=== PATIENT | female | born 1995 | race Caucasian/White ===

== ENCOUNTER 2018-01-06 23:19 | Emergency (ER) | payer OTHER ==
[~2018-01-06] VITALS: Ht 160 cm; Wt 81.9 kg
[~2018-01-06 23:19] MED LIST: ABILIFY10 MG PO; ABILIFY15 MG PO; ABILIFY5 MG PO; ADVIL200 MG PO; BUSPAR5 MG PO; ESCITALOPRAM OX20 MG PO; FLONASE16 G1 BOTH NARES; FLUOXETINE HCL20 MG PO; FOCALIN XR10 MG PO; IBUPROFEN800 MG PO; INDERAL10 MG PO; LAMICTAL25 MG PO; LEXAPRO10 MG PO; NO HOME MEDS; PROAIR HFA8.5 GM IH; PROZAC10 MG PO; TRAZODONE HCL50 MG PO; VISTARIL25 MG PO; ZYRTEC10 M3 PO
[2018-01-06 23:53] LABS: APPEARANCE SL.HAZY ((CLEAR)); BILIRUBIN NEGATIVE; BLOOD NEGATIVE; COLOR YELLOW ((YELLOW)); GLUCOSE (STRIP) NEGATIVE; KETONES NEGATIVE; LEUKOCYTES SMALL; NITRITE NEGATIVE; PROTEIN (STRIP) 30; SPECIFIC GRAVITY 1.023 (1.000-1.030); UROBILINOGEN 0.2 MG/DL (0.2-1.0)
[2018-01-06 23:59] LABS: BACTERIA 1+ /HPF; EPITHELIAL CELLS 2+ /HPF; MUCUS 1+ /LPF; RED BLOOD CELLS 0-5 /HPF (0-5); UCUL ADDED? YES
[2018-01-07] LABS: HEMATOCRIT 37.8 % (36.0-46.0); HEMOGLOBIN 12.9 G/DL (11.9-15.5); MCH 29.1 PG (29.0-34.0); MCHC 34.1 G/DL (30.0-36.0); MCV 85.1 FL (83-99); PLATELET COUNT 232 K/uL (156-360); RBC DIS.WIDTH-CV 12.7 % (11.8-14.6); RBC DIS.WIDTH-SD 38.8 % (39-53); RED BLOOD COUNT 4.44 M/uL (3.80-5.20); WHITE BLOOD COUNT 7.4 K/uL (4.1-10.2)
[2018-01-07 00:12] LABS: ALBUMIN 4.2 g/dL (3.2-4.8); CHLORIDE 109 mEq/L (99-109); POTASSIUM 3.5 mEq/L (3.7-5.4); SODIUM 141 mEq/L (136-147)
[2018-01-07 00:14] LABS: GLUCOSE 92 mg/dL (70-99); TOTAL PROTEIN 7.3 g/dL (6.4-8.3)
[2018-01-07 00:16] LABS: TOTAL BILIRUBIN 0.4 mg/dL (0.0-1.0)
[2018-01-07 00:18] LABS: ALKALINE PHOSPHATASE 81 IU/L (3-129); CREATININE 0.8 mg/dL (0.6-1.3); GFR ESTIMATE (CALCULATED) > 59 mL/min/
[2018-01-07 00:19] LABS: AST (GOT) 16 IU/L (2-34); UREA NITROGEN (BUN) 11 mg/dL (9-23)
[2018-01-07 00:21] LABS: ALT (GPT) 17 IU/L (3-49); LIPASE 9 U/L (1.0-51.0)
[2018-01-07 00:28] LABS: QUANTITATIVE HCG < 4.0 MIU/ML
[2018-01-07] MEDS ORDERED: ZANTAC150 MG PO (01:39)
[2018-01-07 02:01] VITALS: BP 124/80
== END 2018-01-07 02:05 | disposition home or self-care (01) ==
LOC: EME 23:19
PROVIDERS: Emergency Medicine
DX: K29.20 Alcoholic gastritis without bleeding (principal); F32.9 Major depressive disorder, single episode, unspecified; J45.909 Unspecified asthma, uncomplicated; F41.9 Anxiety disorder, unspecified; F17.200 Nicotine dependence, unspecified, uncomplicated
CPT/HCPCS: 80053; 81003; 83690; 84702; 85027; 87086; 99281; 99285; J2405